=== PATIENT | male | born 1980 | race Caucasian/White ===

== ENCOUNTER 2016-12-13 08:54 | Emergency (ER) | payer OTHER ==
[2016-12-13 09:03] VITALS: BP 142/90; PULSE 94; RESP 18; TEMP 97.9
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
--- NOTE | 2016-12-13 09:29 | XR ---
EXAMINATION TYPE: XR ribs RT w pa chest xray , 5 VIEWS DATE OF EXAM ORDERED: 12/13/2016 HISTORY: Pain. COMPARISON: None. FINDINGS: There is a calcified granuloma in the left upper lobe. The lungs are otherwise clear. Pleu ral space are clear. The heart is not enlarged. There is no evidence of pneumothorax. There is a slig ht cortical irregularity of the seventh rib laterally. A definite cortical break is not seen. IMPRESSION: I CANNOT EXCLUDE AN UNDISPLACED FRACTURE OF THE RIGHT SEVENTH RIB. PLEASE CORRELATE CLINICALLY.
== END 2016-12-13 09:49 | disposition home or self-care (01) ==
LOC: EC 08:54
DX: S22.31XA Fracture of one rib, right side, initial encounter for closed fracture (principal); S63.92XA Sprain of unspecified part of left wrist and hand, initial encounter; F17.200 Nicotine dependence, unspecified, uncomplicated; V18.4XXA Pedal cycle driver injured in noncollision transport accident in traffic accident, initial encounter; Y93.55 Activity, bike riding
CPT/HCPCS: 99283

== ENCOUNTER → 2017-06-15 | Outpatient (CLI) | payer OTHER ==
--- NOTE | 2017-06-15 14:06 | XR ---
EXAMINATION TYPE: XR chest 2V DATE OF EXAM: 06/15/2017 CLINICAL HISTORY: Shortness of breath TECHNIQUE: Frontal and lateral views of the chest are obtained. COMPARISON: December 13, 2016 FINDINGS: There is no focal air space opacity, pleural effusion, or pneumothorax seen. Stable granu bianca left upper lobe. The cardiac silhouette size is within normal limits. The osseous structures a re intact. IMPRESSION: No acute cardiopulmonary process.
[2017-06-15 14:10] LABS: HCT 45.9 % (39.0-53.0); HGB 15.6 gm/dL (13.0-17.5); MCHC 34.1 g/dL (31.0-37.0); MCV 90.9 fL (80.0-100.0); Mean Platelet Volume 7.2; Platelet Count 298 k/uL (150-450); RBC 5.05 m/uL (4.30-5.90); RDW 13.7 % (11.5-15.5); WBC 9.8 k/uL (3.8-10.6)
[2017-06-15 14:11] LABS: Appearance,Urine Clear (Clear); Bilirubin,Urine Negative (Negative); Blood,Urine Negative (Negative); Color,Urine Yellow; Glucose,Urine (UA) Negative (Negative); Hyaline Casts,Urine 5 /lpf (0-2); Ketones,Urine Trace (Negative); Leukocyte Esterase,Urine Negative (Negative); Mucus,Urine Many /hpf; Nitrite,Urine Negative (Negative); Protein,Urine 1+ (Negative); WBC,Urine 2 /hpf (0-5)
[2017-06-15 14:37] LABS: ALT 28 U/L (21-72); AST 16 U/L (17-59); Albumin 4.3 g/dL (3.5-5.0); Alkaline Phosphatase 81 U/L (38-126); Anion Gap 17 mmol/L; Blood Urea Nitrogen 12 mg/dL (9-20); Calcium 9.9 mg/dL (8.4-10.2); Carbon Dioxide 23 mmol/L (22-30); Chloride 107 mmol/L (98-107); Cholesterol 201 mg/dL (<200); Glucose 107 mg/dL (74-99); HDL Cholesterol 70 mg/dL (40-60); LDL Cholesterol,Calculated 114 mg/dL (0-99); Sodium 147 mmol/L (137-145); Total Bilirubin 0.4 mg/dL (0.2-1.3); Total Protein 7.7 g/dL (6.3-8.2); Triglycerides 84 mg/dL (<150)
[2017-06-15 14:40] LABS: Potassium 4.6 mmol/L (3.5-5.1)
[2017-06-15 14:53] LABS: T4, Free (Free Thyroxine) 0.68 ng/dL (0.78-2.19)
== END | disposition home or self-care (01) ==
LOC: RADXRMAIN 13:27
PROVIDERS: ATTEND Internal Medicine
DX: Z00.00 Encounter for general adult medical examination without abnormal findings (principal); I11.9 Hypertensive heart disease without heart failure; R35.0 Frequency of micturition; R05 Cough
CPT/HCPCS: 71046; 80053; 80061; 81001; 84439; 84443; 85027